=== PATIENT | female | born 1955 | race Caucasian/White ===

== ENCOUNTER → 2020-04-07 | Outpatient (CLI) | payer BC ==
--- NOTE | 2020-04-14 17:12 | WOMENS IMAGING REPORT ---
EXAM DESCRIPTION: RIGHT DIG DX MAMMO NO CHG; STEREO BREAST BX; BREAST SPECIMEN IMAGES COMPLETED DATE/TIME: 04/06/2020 10:17 am; 04/13/2020 8:24 am; 04/12/2020 11:35 am REASON FOR STUDY: POST RT STEREO; OTHER SPECIFIED DISORDERS OF BREAST; CALCS COMPARISON: None. TECHNIQUE: Vacuum-assisted stereotactic-guided biopsy of the lesion in the right breast. Serial prog ress stereotactic and single digital images acquired. PROCEDURE: The procedure was discussed with the patient, including possible complications such as b leeding, infection, nondiagnostic sample or possible findings such as atypical ductal hyperplasia whi ch would require additional surgery. Possible clip placement was explained. The patient agreed to the procedure. The patient was placed prone on the stereotactic table. The lesion in the breast was localized stere otactically. The skin of the breast was prepped in sterile fashion. Superficial and deep local ane sthesia was provided. A small incision was made in the skin and the biopsy probe was advanced to th e target. Using the vacuum-assisted core biopsy device, multiple core specimens were obtained. Continuous low dose infusion of local anesthesia was used during the procedure. A specimen radiograph was obtained. The radiograph demonstrated calcifications in the biopsy tissue. Using [id number] technique a clip was deployed at the biopsy site. Mammographic image c onfirmed presence of the clip. The probe was then removed and hemostasis obtained with manual compr ession. A compression bandage was applied. Postoperative instructions were explained to the patie nt. POST-PROCEDURE TWO VIEW DIGITAL MAMMOGRAM: An additional two view mammogram was recorded in the [facility] mammographic suite. Marker clip was displaced superficially along the biopsy tract with removal of the guide. LIMITATIONS: None. 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 No invasive carcinoma identified. CONCORDANT: Yes. IMPRESSION: SUCCESSFUL STEREOTACTIC-GUIDED BIOPSY OF THE LESION IN THE RIGHT BREAST. BIOPSY RESULT S ARE CONCORDANT WITH IMAGING FINDINGS. FOLLOW-UP: DETERMINED BY THE PATIENT'S PHYSICIAN. TECHNICAL DOCUMENTATION: JOB ID: [id number] [email or web address]- All Rights Reserved Reading location - IP/workstation name: [email or web address]
== END ==
LOC: WI 10:15
PROVIDERS: ATTEND Physician Assistant
DX: R92.0 Mammographic microcalcification found on diagnostic imaging of breast (principal)
CPT/HCPCS: 76098